=== PATIENT | female | born 2000 | race Caucasian/White ===

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

== ENCOUNTER → 2020-10-15 | Outpatient (CLI) | payer OTHER ==
[2020-10-15 14:34] LABS: EOS # 0.1 (0.04-0.40); EOS % 1.9 % (0.1-4.0); HEMATOCRIT 44.9 % (35.0-45.0); HEMOGLOBIN 14.4 g/dL (12.0-15.0); LYMPH# 1.2 (1.20-3.40); MEAN CELL VOLUME 91 fl (78-95); MEAN CORPUSCULAR HEMOGLOBIN 29 pg (26-32); MEAN CORPUSCULAR HGB CONC 32 g/dL (33-37); MEAN PLATELET VOLUME 8.9 fl (7.4-10.4); MONO # 0.4 (0.10-0.60); PLATELET COUNT 317 K/mm3 (130-400); RED BLOOD COUNT 4.91 M/mm3 (4.10-5.30); RED CELL DISTRIBUTION WIDTH 12.6 % (11.5-14.5); WHITE BLOOD COUNT 4.7 K/mm3 (4.8-10.8)
[2020-10-15 14:54] LABS: ALBUMIN 4.2 g/dL (3.5-5.0); POTASSIUM 4.1 mmol/L (3.5-5.1)
[2020-10-15 14:56] LABS: CALCIUM 9.1 mg/dL (8.3-10.5)
[2020-10-15 14:57] LABS: TOTAL PROTEIN 7.3 g/dL (6.4-8.3)
[2020-10-15 14:59] LABS: TOTAL BILIRUBIN 0.2 mg/dL (0.2-1.2)
== END ==
LOC: LAB 14:19
PROVIDERS: Physician Assistant
DX: E55.9 Vitamin D deficiency, unspecified (principal); R42 Dizziness and giddiness

== ENCOUNTER → 2021-01-27 | Outpatient (CLI) | payer OTHER ==
[2021-01-27 18:12] LABS: BASO # 0.02 (0.02-0.10); EOS # 0.12 (0.04-0.40); EOS % 1.7 % (0.1-4.0); HEMATOCRIT 43.1 % (35.0-45.0); HEMOGLOBIN 14.4 g/dL (12.0-15.0); LYMPH# 1.67 (1.20-3.40); MEAN CELL VOLUME 89 fl (78-95); MEAN CORPUSCULAR HEMOGLOBIN 30 pg (26-32); MEAN CORPUSCULAR HGB CONC 33 g/dL (33-37); MONO # 0.47 (0.10-0.60); NEU # 4.74 (1.40-6.50); PLATELET COUNT 319 K/mm3 (130-400); RED BLOOD COUNT 4.86 M/mm3 (4.10-5.30); RED CELL DISTRIBUTION WIDTH 12.4 % (11.5-14.5)
[2021-01-27 18:23] LABS: ALBUMIN 4.2 g/dL (3.5-5.0); POTASSIUM 4.3 mmol/L (3.5-5.1)
[2021-01-27 18:25] LABS: CALCIUM 9.3 mg/dL (8.3-10.5)
[2021-01-27 18:26] LABS: TOTAL PROTEIN 7.6 g/dL (6.4-8.3)
[2021-01-27 18:28] LABS: TOTAL BILIRUBIN 0.2 mg/dL (0.2-1.2)
== END ==
LOC: LAB 18:00
PROVIDERS: Physician Assistant
DX: R53.83 Other fatigue (principal)

== ENCOUNTER → 2021-05-04 | Outpatient (CLI) | payer OTHER | LOC: LAB 15:20 | DX: N39.0 Urinary tract infection, site not specified (principal) ==

== ENCOUNTER → 2021-06-22 | Outpatient (CLI) | payer OTHER | LOC: LAB 08:55 | DX: N39.0 Urinary tract infection, site not specified (principal) ==

== ENCOUNTER → 2022-01-24 | Outpatient (CLI) | payer OTHER | LOC: LAB 16:23 | DX: N91.2 Amenorrhea, unspecified (principal) ==

== ENCOUNTER → 2023-12-19 | Outpatient (CLI) | payer BC, MEDICAID ==
[2023-12-19 15:14] LABS: BASO # 0.02 K/mm3 (0.02-0.10); EOS # 0.21 K/mm3 (0.04-0.40); EOS % 2.5 % (1.0-5.0); HEMATOCRIT 45.6 % (37.0-47.0); HEMOGLOBIN 14.5 g/dL (12.5-16.0); LYMPH# 1.67 K/mm3 (1.50-4.00); MEAN CELL VOLUME 91 fl (78-100); MEAN CORPUSCULAR HEMOGLOBIN 29 pg (27-31); MEAN CORPUSCULAR HGB CONC 32 g/dL (33-37); MEAN PLATELET VOLUME 9.1 fl (7.4-10.4); NEU # 6.01 K/mm3 (1.40-6.50); PLATELET COUNT 314 K/mm3 (130-400); RED CELL DISTRIBUTION WIDTH 12.6 % (11.5-14.5); WHITE BLOOD COUNT 8.4 K/mm3 (4.8-10.8)
[2023-12-19 15:20] LABS: ALBUMIN 4.4 g/dL (3.5-5.0); SODIUM 139 mmol/L (136-145)
[2023-12-19 15:21] LABS: CALCIUM 9.8 mg/dL (8.3-10.5)
[2023-12-19 15:23] LABS: GLUCOSE 106 mg/dL (65-105); TOTAL PROTEIN 7.4 g/dL (6.4-8.3)
[2023-12-19 15:24] LABS: CARBON DIOXIDE 21 mmol/L (22-29)
[2023-12-19 15:25] LABS: TOTAL BILIRUBIN 0.2 mg/dL (0.2-1.2)
[2023-12-19 15:28] LABS: AST-SGOT 17 U/L (5-34)
[2023-12-19 15:29] LABS: ALT/SGPT 24 U/L (0-55)
== END ==
LOC: LAB 14:51
PROVIDERS: Physician Assistant
DX: Z13.1 Encounter for screening for diabetes mellitus (principal); Z13.220 Encounter for screening for lipoid disorders; M79.89 Other specified soft tissue disorders; N91.2 Amenorrhea, unspecified; K90.9 Intestinal malabsorption, unspecified; R63.5 Abnormal weight gain

== ENCOUNTER → 2024-09-19 | Outpatient (CLI) | payer BC, MEDICAID ==
[2024-09-19 16:39] LABS: BASO # 0.01 K/mm3 (0.02-0.10); EOS # 0.21 K/mm3 (0.04-0.40); EOS % 3.3 % (1.0-5.0); HEMATOCRIT 45.1 % (37.0-47.0); HEMOGLOBIN 14.6 g/dL (12.5-16.0); LYMPH# 2.22 K/mm3 (1.50-4.00); MEAN CELL VOLUME 91 fl (78-100); MEAN CORPUSCULAR HEMOGLOBIN 30 pg (27-31); MEAN CORPUSCULAR HGB CONC 32 g/dL (33-37); MEAN PLATELET VOLUME 9.4 fl (7.4-10.4); MONO # 0.33 K/mm3 (0.20-0.80); NEU # 3.54 K/mm3 (1.40-6.50); PLATELET COUNT 321 K/mm3 (130-400); RED BLOOD COUNT 4.95 M/mm3 (4.10-5.30); RED CELL DISTRIBUTION WIDTH 12.2 % (11.5-14.5); WHITE BLOOD COUNT 6.3 K/mm3 (4.8-10.8)
[2024-09-19 16:45] LABS: ALBUMIN 4.3 g/dL (3.5-5.0)
[2024-09-19 16:47] LABS: CALCIUM 9.5 mg/dL (8.3-10.5)
[2024-09-19 16:48] LABS: TOTAL PROTEIN 7.6 g/dL (6.4-8.3)
[2024-09-19 16:50] LABS: TOTAL BILIRUBIN 0.2 mg/dL (0.2-1.2)
== END ==
LOC: LAB 16:21
PROVIDERS: Physician Assistant
DX: R10.9 Unspecified abdominal pain (principal)